=== PATIENT | female | born 1950 | race Caucasian/White ===

== ENCOUNTER 2020-11-14 17:18 | Outpatient (REF) | payer SELFPAY ==
[2020-11-15 02:05] LABS: COVID-19 RT-PCR UVMMC Result Negative (Negative)
== END 2020-11-14 17:38 ==
LOC: LBN 17:18
PROVIDERS: Visit Provider Nurse Practitioner Adult Health
DX: Z11.59 Encounter for screening for other viral diseases (principal)
CPT/HCPCS: U0003

== ENCOUNTER 2020-11-18 11:32 | Outpatient (REF) | payer MEDICARE, MEDICAID, SELFPAY ==
[2020-11-19 17:37] LABS: COVID-19 RT-PCR Result Not Detected ((See Note))
== END 2020-11-18 11:52 ==
LOC: LBN 11:32
PROVIDERS: Visit Provider Nurse Practitioner Adult Health
DX: Z11.59 Encounter for screening for other viral diseases (principal)
CPT/HCPCS: U0003

== ENCOUNTER 2020-11-23 22:20 | Outpatient (REF) | payer MEDICARE, MEDICAID, SELFPAY ==
[2020-11-24 17:30] LABS: COVID-19 RT-PCR Result Not Detected ((See Note))
== END 2020-11-23 22:40 ==
LOC: LBN 22:20
PROVIDERS: Visit Provider Nurse Practitioner Adult Health
DX: Z11.59 Encounter for screening for other viral diseases (principal)
CPT/HCPCS: U0003

== ENCOUNTER 2020-11-27 19:41 | Outpatient (REF) | payer MEDICARE, MEDICAID, SELFPAY ==
[2020-11-28 14:58] LABS: COVID-19 RT-PCR Result Not Detected ((See Note))
== END 2020-11-27 20:01 ==
LOC: LBN 19:41
PROVIDERS: Visit Provider Nurse Practitioner Adult Health
DX: Z11.52 Encounter for screening for COVID-19 (principal)
CPT/HCPCS: U0003